=== PATIENT | female | born 1945 | race Native Hawaiian/Other Pacific Islander ===

== ENCOUNTER 2016-10-24 10:43 | Outpatient (CLI) | payer OTHER ==
[~2016-10-24 10:43] MED LIST: FOLIC ACID5 MG PO; GABA300C2 PO; IRON325 MG PO; LISITAB PO; LORCET 5-325 MG1 TAB PO; NEXIUM40 M1 PO; SIMV10TA PO; VITAMIN C + PO; ZOFRAN8 MG PO
[2016-10-24 11:22] LABS: PLATELET COUNT 261 K/uL (152-353)
[2016-10-24 16:58] LABS: POTASSIUM 3.7 mmol/L (3.6-5.2)
== END 2016-10-24 11:45 | disposition home or self-care (01) ==
LOC: LABW 10:43
PROVIDERS: Internal Medicine
DX: I10 Essential (primary) hypertension (principal)
CPT/HCPCS: 36415; 80053; 80061; 81000; 84443; 85027

== ENCOUNTER 2017-04-18 10:25 | Outpatient (CLI) | payer OTHER ==
[2017-04-18 11:16] LABS: PLATELET COUNT 214 K/uL (152-353)
[2017-04-18 13:16] LABS: POTASSIUM 3.9 mmol/L (3.6-5.2)
== END 2017-04-18 11:25 | disposition home or self-care (01) ==
LOC: LABW 10:25
PROVIDERS: Internal Medicine
DX: I10 Essential (primary) hypertension (principal)
CPT/HCPCS: 36415; 80053; 80061; 81000; 84443; 85027

== ENCOUNTER 2017-07-16 12:56 | Outpatient (CLI) | payer OTHER ==
[2017-07-16 14:03] LABS: PLATELET COUNT 213 K/uL (152-353)
== END 2017-07-16 20:03 | disposition home or self-care (01) ==
LOC: LABW 12:56
PROVIDERS: Internal Medicine
DX: D64.89 Other specified anemias (principal); E78.00 Pure hypercholesterolemia, unspecified
CPT/HCPCS: 80061; 80076; 85027

== ENCOUNTER 2017-07-26 10:41 | Outpatient (CLI) | payer OTHER | END 2017-07-26 23:00 | disposition home or self-care (01) | LOC: MAMMO 10:41 | DX: Z12.31 Encounter for screening mammogram for malignant neoplasm of breast (principal); Z13.820 Encounter for screening for osteoporosis; M81.8 Other osteoporosis without current pathological fracture ==

== ENCOUNTER 2017-10-14 10:55 | Outpatient (CLI) | payer OTHER ==
[2017-10-14 11:15] LABS: PLATELET COUNT 204 K/uL (152-353)
[2017-10-14 11:25] LABS: POTASSIUM 3.7 mmol/L (3.6-5.2)
== END 2017-10-14 19:49 | disposition home or self-care (01) ==
LOC: LABW 10:55
PROVIDERS: Internal Medicine
DX: I10 Essential (primary) hypertension (principal); M81.0 Age-related osteoporosis without current pathological fracture; D64.89 Other specified anemias; E78.00 Pure hypercholesterolemia, unspecified
CPT/HCPCS: 36415; 80053; 80061; 82306; 85027

== ENCOUNTER 2018-11-14 10:20 | Outpatient (CLI) | payer OTHER ==
[2018-11-14 10:54] LABS: POTASSIUM 3.9 mmol/L (3.6-5.2)
[2018-11-14 11:06] LABS: PLATELET COUNT 186 K/uL (152-353)
== END 2018-11-14 23:37 | disposition home or self-care (01) ==
LOC: LABW 10:20
PROVIDERS: Internal Medicine
DX: I10 Essential (primary) hypertension (principal); D64.89 Other specified anemias; E78.00 Pure hypercholesterolemia, unspecified; M19.90 Unspecified osteoarthritis, unspecified site
CPT/HCPCS: 36415; 80053; 80061; 81000; 82306; 84439; 84443; 85027

== ENCOUNTER 2019-01-14 15:41 | Outpatient (CLI) | payer OTHER ==
[2019-01-14 16:32] LABS: PLATELET COUNT 208 K/uL (152-353)
== END 2019-01-14 20:15 | disposition home or self-care (01) ==
LOC: LABW 15:41
PROVIDERS: Physician Assistant
DX: D64.89 Other specified anemias (principal); E03.8 Other specified hypothyroidism
CPT/HCPCS: 36415; 84443; 85027

== ENCOUNTER 2019-02-10 11:49 | Outpatient (CLI) | payer OTHER | END 2019-02-10 20:12 | disposition home or self-care (01) | LOC: RAD 11:49 | DX: M25.561 Pain in right knee (principal) ==

== ENCOUNTER 2019-05-14 11:55 | Outpatient (CLI) | payer OTHER | END 2019-05-14 22:33 | disposition home or self-care (01) | LOC: US 11:55 | DX: M79.605 Pain in left leg (principal) ==

== ENCOUNTER 2019-10-12 10:58 | Outpatient (CLI) | payer OTHER ==
[2019-10-12 11:27] LABS: PLATELET COUNT 210 K/uL (152-353)
== END 2019-10-12 23:12 | disposition home or self-care (01) ==
LOC: LABW 10:58
PROVIDERS: Internal Medicine
DX: I12.9 Hypertensive chronic kidney disease with stage 1 through stage 4 chronic kidney disease, or unspecified chronic kidney disease (principal); M81.0 Age-related osteoporosis without current pathological fracture; D64.89 Other specified anemias; N18.9 Chronic kidney disease, unspecified; R82.998 Other abnormal findings in urine
CPT/HCPCS: 36415; 80053; 80061; 81000; 82306; 84439; 84443; 85027; 87086; 87088

== ENCOUNTER 2020-04-26 15:35 | Emergency (ER) | payer OTHER ==
[~2020-04-26] VITALS: Ht 162.6 cm; Wt 72.6 kg
[2020-04-26 15:35] VITALS: BP 170/86; TEMP 97.9
== END 2020-04-26 18:20 | disposition home or self-care (01) ==
LOC: ED 15:35
DX: S42.214A Unspecified nondisplaced fracture of surgical neck of right humerus, initial encounter for closed fracture (principal); S80.02XA Contusion of left knee, initial encounter; W18.09XA Striking against other object with subsequent fall, initial encounter; Y92.512 Supermarket, store or market as the place of occurrence of the external cause
CPT/HCPCS: 99283

== ENCOUNTER 2020-05-26 10:38 | Outpatient (CLI) | payer OTHER ==
[2020-05-26 11:08] LABS: PLATELET COUNT 237 K/uL (152-353)
[2020-05-26 11:26] LABS: POTASSIUM 4.4 mmol/L (3.6-5.2)
== END 2020-05-26 20:44 | disposition home or self-care (01) ==
LOC: LABW 10:38
PROVIDERS: ATTEND Internal Medicine
DX: I10 Essential (primary) hypertension (principal); E03.8 Other specified hypothyroidism
CPT/HCPCS: 36415; 80053; 80061; 81000; 84439; 84443; 85027

== ENCOUNTER 2020-08-26 15:00 | Emergency (ER) | payer OTHER ==
[~2020-08-26] VITALS: Ht 162.6 cm; Wt 72.6 kg
[2020-08-26 15:00] VITALS: TEMP 97.6
[2020-08-26 15:30] LABS: PLATELET COUNT 209 K/uL (152-353)
[2020-08-26 15:39] LABS: POTASSIUM 4.1 mmol/L (3.6-5.2)
[2020-08-26 17:50] VITALS: BP 139/88
== END 2020-08-26 18:00 | disposition home or self-care (01) ==
LOC: ED 15:11
PROVIDERS: Emergency Medicine Emergency Medical Services
DX: M17.11 Unilateral primary osteoarthritis, right knee (principal)
CPT/HCPCS: 80048; 81000; 83735; 85027; 85610; 99283

== ENCOUNTER 2020-11-22 10:09 | Outpatient (CLI) | payer OTHER ==
[2020-11-22 10:29] LABS: PLATELET COUNT 233 K/uL (152-353)
[2020-11-22 10:52] LABS: POTASSIUM 4.5 mmol/L (3.6-5.2)
== END 2020-11-22 21:34 | disposition home or self-care (01) ==
LOC: LABW 10:09
PROVIDERS: ATTEND Internal Medicine
DX: Z00.00 Encounter for general adult medical examination without abnormal findings (principal); Z13.820 Encounter for screening for osteoporosis; E03.8 Other specified hypothyroidism; I10 Essential (primary) hypertension; R82.998 Other abnormal findings in urine
CPT/HCPCS: 36415; 80053; 80061; 81000; 82306; 84439; 84443; 85027; 87077; 87086; 87088; 87186

== ENCOUNTER 2021-03-02 09:13 | Outpatient (CLI) | payer OTHER | END 2021-03-02 20:01 | disposition home or self-care (01) | LOC: RAD 09:13 | PROVIDERS: ATTEND Internal Medicine | DX: Z12.31 Encounter for screening mammogram for malignant neoplasm of breast (principal); Z13.820 Encounter for screening for osteoporosis; N95.8 Other specified menopausal and perimenopausal disorders ==

== ENCOUNTER 2021-11-13 11:39 | Outpatient (CLI) | payer OTHER ==
[2021-11-13 12:28] LABS: POTASSIUM 3.9 mmol/L (3.6-5.2)
[2021-11-13 12:58] LABS: PLATELET COUNT 169 K/uL (152-353)
== END 2021-11-13 19:02 | disposition home or self-care (01) ==
LOC: LABW 11:39
PROVIDERS: ATTEND Internal Medicine
DX: D64.9 Anemia, unspecified (principal); I10 Essential (primary) hypertension; M81.0 Age-related osteoporosis without current pathological fracture
CPT/HCPCS: 36415; 80053; 80061; 81002; 81015; 84439; 84443; 85027; 87077; 87086; 87088; 87186

== ENCOUNTER 2022-03-05 08:48 | Outpatient (CLI) | payer OTHER | END 2022-03-05 19:32 | disposition home or self-care (01) | LOC: MAMMO 08:48 | PROVIDERS: ATTEND Internal Medicine | DX: Z12.31 Encounter for screening mammogram for malignant neoplasm of breast (principal) ==

== ENCOUNTER 2022-07-02 11:14 | Outpatient (CLI) | payer OTHER ==
[2022-07-02 11:35] LABS: PLATELET COUNT 244 K/uL (152-353)
[2022-07-02 11:56] LABS: POTASSIUM 4.6 mmol/L (3.6-5.2)
== END 2022-07-02 18:59 | disposition home or self-care (01) ==
LOC: LABW 11:14
PROVIDERS: ATTEND Internal Medicine
DX: E03.8 Other specified hypothyroidism (principal); E55.9 Vitamin D deficiency, unspecified; D64.89 Other specified anemias; I10 Essential (primary) hypertension
CPT/HCPCS: 36415; 80053; 80061; 81002; 82306; 84439; 84443; 85027

== ENCOUNTER 2023-01-17 11:12 | Outpatient (CLI) | payer OTHER ==
[2023-01-17 11:47] LABS: PLATELET COUNT 193 K/uL (152-353)
[2023-01-17 12:04] LABS: POTASSIUM 3.9 mmol/L (3.6-5.2)
== END 2023-01-17 18:48 | disposition home or self-care (01) ==
LOC: LABW 11:12
PROVIDERS: ATTEND Internal Medicine
DX: I10 Essential (primary) hypertension (principal); E03.8 Other specified hypothyroidism
CPT/HCPCS: 36415; 80053; 80061; 81002; 84439; 84443; 85027